=== PATIENT | female | born 1985 | race Caucasian/White ===

== ENCOUNTER 2024-07-27 17:14 | Emergency (ER) | payer SELFPAY ==
--- NOTE | 2024-07-27 17:51 | ED ---
Chest Pain HPI - General Chief Complaint: Chest Pain Stated Complaint: chest pain Time Seen by Provider: 07/27/24 17:15 Source: patient, EMS Mode of arrival: EMS Limitations: no limitations - History of Present Illness Initial Comments: Patient is a 39-year-old female no significant past medical history presenting today for left-sided chest pain. Patient states that she was sitting at home when she began experiencing left-sided chest pressure. She went to take a walk and the pain worsened intermittently rating down her back and left arm. She felt tingling in the corner of her mouth and left side of her face and tingling in her left upper extremity. Denies shortness of breath. EMS was called patient was provided with full dose aspirin and brought to emergency department. Patient states chest pain has resolved on arrival. She does state she has been under a significant amount of stress recently, as her son has Stage IV cancer and she was told 3 weeks ago that he has new tumors. Patient does not smoke cigarettes, no has has no history of hypertension, hyperlipidemia or diabetes. Patient's mother did have a heart attack at the age of 46. No history of blood clots. Is not on estrogen replacement therapy or control. No recent travel surgeries or hospitalizations, no hx PE/DVT, no cough or hemoptysis. No hx CA. Patient also notes 1 week LLQ abdominal pain. Vaginal spotting. No nausea, vomiting, diarrhea, hematochezia or melena. Does endorse urinary frequency stating she will urinate and feels like she does not "get it all out". Prior abdominal surgeries. - Related Data Home Medications Medication Instructions Recorded Confirmed Buprenorphine/Naloxone 8Mg/2Mg 0.5 film SL DAILY 07/27/24 07/27/24 [Suboxone 8-2Mg Film] Allergies Allergy/AdvReac Type Severity Reaction Status Date / Time No Known Allergies Allergy Verified 07/27/24 18:08 Review of Systems ROS Statement: Those systems with pertinent positive or pertinent negative responses have been documented in the HPI. ROS Other: All systems not noted in ROS Statement are negative. EKG Findings - EKG Comments: EKG Findings:: Sinus rhythm, rate 78 bpm, [place] interval 151 ms, QRS duration 93 ms, QT/QTc 346/range at 80 ms, normal axis, no ST elevations or depressions, no arrhythmia Past Medical History Past Medical History: No Reported History History of Any Multi-Drug Resistant Organisms: None Reported Past Surgical History: Section, Cholecystectomy Past Psychological History: Anxiety Smoking Status: Never smoker Past Alcohol Use History: None Reported Past Drug Use History: None Reported General Exam - General Exam Comments Initial Comments: PE: CONSTITUTIONAL: No apparent distress, well appearing, tearful SKIN: Warm, dry, no jaundice, hives or petechiae EYES: Pupils are equally round, extraocular movements intact without nystagmus, clear conjunctiva, non-icteric sclera HENT: Normocephalic, atraumatic, moist mucus membranes, oropharynx clear without exudates NECK: , Full range of motion, normal appearance PULMONARY: Clear to auscultation without wheezes, rhonchi, or rales, normal excursion, no accessory muscle use and no stridor CARDIOVASCULAR: Regular rate, rhythm, normal S1 and S2. No appreciated murmurs, rubs or gallops. Strong radial pulses with intact distal perfusion. 2+ pulses in the bilateral upper and bilateral lower extremities no lower extremity edema GASTROINTESTINAL: Soft, active bowel sounds throughout, tenderness to palpation of the left lower quadrant non-distended, no palpable masses, no rebound or guarding. No hepatosplenomegaly MUSCULOSKELETAL: Extremities have no gross deformity, no edema, redness, or swelling. No calf swelling NEUROLOGIC:_a/o x 3, GCS 15, normal mentation and speech. Moves all extremities x 4 without motor or sensory deficit PSYCHIATRIC: Tearful mood and affect, thought process is clear and linear Limitations: no limitations Course Vital Signs 07/27/24 07/27/24 17:16 18:02 Temperature 98.1 F Pulse Rate 92 98 Respiratory 20 18 Rate Blood Pressure 170/90 135/85 O2 Sat by Pulse 99 97 Oximetry Chest Pain MDM - MDM Was pt. sent in by a medical professional or institution (, PA, OSS ARCHITECT, urgent care, hospital, or longterm...) When possible be specific @ -No Did you speak to anyone other than the patient for history (EMS, parent, family, police, friend...)? What history was obtained from this source @ -No Did you review nursing and triage notes (agree or disagree)? Why? @ -I reviewed and agree with nursing and triage notes Were old charts reviewed (outside hosp., previous admission, EMS record, old EKG, old radiological studies, urgent care reports/EKG's, longterm records)? Report findings @No old charts available for review Differential Diagnosis (chest pain, altered mental status, abdominal pain women, abdominal pain men, vaginal bleeding, weakness, fever, dyspnea, syncope, headache, dizziness, GI bleed, back pain, seizure, CVA, palpatations, mental health, musculoskeletal)? @ -Differential Chest Pain: ACS, pericarditis, pleurisy, chostochondirits, Pneumothorax, Musculoskeletal, PE, esophageal Spasm GERD, anxiety this is not meant to be an all-inclusive list. In addition to differential listed above, in regards left lower quadrant pain has been ongoing for a week with no associated GI symptoms, differential diagnosis remains broad over top considerations include ureterolithiasis, diverticulitis, diverticulosis, colitis, ovarian cyst, ovarian torsion, ectopic is an all-inclusive list EKG interpreted by me (3pts min.). @ -As above X-rays interpreted by me (1pt min.). @ -Normal cardiac silhouette, no cardiomegaly, no pleural effusions CT interpreted by me (1pt min.). @ -None done U/S interpreted by me (1pt. min.). @ -None done What testing was considered but not performed or refused? (CT, X-rays, U/S, labs)? Why? @ -Considered CT abdomen pelvis however labs reassuring, no elevated lactate, no leukocytosis would expect these to be elevated with pain going on for a week if acute intra-abdominal process occurring, vital signs stable no additional GI symptoms What meds were considered but not given or refused? Why? @ -None Did you discuss the management of the patient with other professionals (professionals i.e. , PA, OSS ARCHITECT, lab, RT, psych nurse, professor of social work, coverstitch machine operator, teacher, senior grants officer, disease case manager rn)? Give summary @ -No Was smoking cessation discussed for >3mins.? @ -No Was critical care preformed (if so, how long)? @ -No Were there social determinants of health that impacted care today? How? (Homelessness, low income, unemployed, alcoholism, drug addiction, transportation, low edu. Level, literacy, decrease access to med. care, halfway, rehab)? @ -No Was there de-escalation of care discussed even if they declined (Discuss DNR or withdrawal of care, Hospice)? @ -No What co-morbidities impacted this encounter? (DM, HTN, Smoking, COPD, CAD, Cancer, CVA, ARF, Chemo, Hep., AIDS, mental health diagnosis, sleep apnea, morbid obesity)? @ -None Was patient admitted / discharged? Hospital course, mention meds given and route, prescriptions, significant lab abnormalities, going to OR and other pertinent info. @ -Hospital course Patient seen and evaluated on arrival. She is a previously well 31-year-old female presenting for left-sided chest pain that radiated down her arm with exertion. Positive family history. On my assessment patient states pain had resolved. Discussed plan for cardiac workup, D-dimer, valium as patient is very tearful and feels very stressed with patient's son's new health diagnosis. Labs and imaging reviewed. Grossly within normal limits. Abnormal values not concerning for acute pathology related to presenting complaint. Will obtain repeat troponin. Given patient's low heart score anticipate discharge. Patient is agreeable and comfortable this plan. We did discuss her left lower quadrant pain and will obtain an ultrasound of left lower quadrant to rule out ovarian torsion. Patient is agreeable with this. Repeat troponin less than 0.012. Transabdominal ultrasound performed as patient refused pelvic. Ultrasound pelvis transabdominal notes that the uterus appeared slightly bulky in appearance was difficult to evaluate without transvaginal and imaging, ovaries obscured by overlying bowel gas. I did update patient to these findings and did discuss with her that if her pain was secondary to ovarian torsion or pathology we would not be able to see with transvaginal ultrasound. She was comfortable with discharge home without further imaging and will follow- up with her court recorder in her primary care provider soon as possible. HEART [id number] suspicious history normal EKG, age less than 45, 1-2 risk factors, troponin liwithin normal limits In my medical judgment there is currently no evidence of an immediate life- threatening or surgical condition. Discharge is therefore indicated at this time. Discharge treatment instructions, follow up instructions, and appropriate emergency department return precautions were discussed with the patient and/or medical decision maker. Patient and/or medical decision maker expressed understanding of and agreed with the treatment plan, follow up instructions, and emergency department return precaution. All patient's and/or medical decision maker's questions were answered. The patient was advised that a small risk still exists that a serious condition could develop and was therefore instructed to return to the ED for any changes in symptoms, persistent symptoms, inability to obtain proper follow-up or for any further concerns. Patient received verbal and written instructions for this condition. Undiagnosed new problem with uncertain prognosis? @ -No Drug Therapy requiring intensive monitoring for toxicity (Heparin, Nitro, Insulin, Cardizem)? @ -No Were any procedures done? @ -No Diagnosis/symptom? @ -Chest pain, left lower quadrant pain Acute, or Chronic, or Acute on Chronic? @ -Acute Uncomplicated (without systemic symptoms) or Complicated (systemic symptoms)? @ -Complicated Side effects of treatment? @ -No Exacerbation, Progression, or Severe Exacerbation? @ -No Poses a threat to life or bodily function? How? (Chest pain, [place], [place], pneumonia, PE, COPD, DKA, ARF, appy, cholecystitis, CVA, Diverticulitis, Homicidal, Suicidal, threat to staff... and all critical care pts) @ -No - Wells Criteria Clinical Symptoms of DVT: (0) No No Alternative Diagnosis: (3.0) Yes Immobilization of Surgery in Previous 4 Weeks: (0) No Previous DVT/PE: (0) No Hemoptysis: (0) No Malignancy: (0) No - PERC Rule Heart Rate < 100: (0) No g: (0) No No Prior History pf DVT/PE: (1) Yes No Recent Trauma or Surgery: (1) Yes Hemoptysis: (0) No No Exogenous Estrogen: (0) No No Clinical Signs Suggesting DVT: (0) No Disposition Clinical Impression: Chest pain, Left lower quadrant abdominal pain Disposition: HOME SELF-CARE Condition: Good Instructions (If sedation given, give patient instructions): Chest Pain (ED), Abdominal Pain (ED) Additional Instructions: Every disease is a spectrum and a small chance still exists that a serious condition could develop, for this reason, please monitor yourself closely for new, changing or worsening symptoms, symptoms that do not improve in 48 hours, worsening or uncontrolled pain, shortness of breath, coughing up blood, difficulty in breathing, swelling in 1 leg greater than the other, blood in your stool, pain that you cannot control at home, fever, inability to tolerate/keep down fluids or your medications, inability to follow up with outpatient providers as instructed and should you experience these symptoms or should you have any further concerns for your wellbeing please return to the ED or call 911 immediately. PLEASE call your primary care physician as soon as possible to arrange / discuss plan for followup appointment. Appointment in the next 1-3 days is strongly encouraged if possible. PLEASE let us know here before you leave if there is anything further we can do to be of any assistance. Take care and feel Better! Is patient prescribed a controlled substance at d/c from ED?: No Referrals: None,Stated [Primary Care Provider] - 1-2 days
[2024-07-27] MEDS: SODIUM CHLORIDE 0.9% 1,000 ML IV STA (17:53)
[2024-07-27] MEDS: ACETAMINOPHEN TAB 500 MG TAB PO STA (17:54)
[2024-07-27 18:09] LABS: Basophils % (A) 0 %; Eosinophils # (A) 0.4 k/uL (0-0.7); Eosinophils % (A) 5 %; HGB 13.8 gm/dL (11.4-16.0); Lymphocytes # (A) 1.9 k/uL (1.0-4.8); Lymphocytes % (A) 24 %; MCH 30.1 pg (25.0-35.0); MCHC 32.9 g/dL (31.0-37.0); MCV 91.5 fL (80.0-100.0); Mean Platelet Volume 7.3; Monocytes # (A) 0.3 k/uL (0-1.0); Monocytes % (A) 4 %; Neutrophils # (A) 5.1 k/uL (1.3-7.7); Neutrophils % (A) 65 %; Platelet Count 349 k/uL (150-450); RBC 4.59 m/uL (3.80-5.40); RDW 12.8 % (11.5-15.5); WBC 7.8 k/uL (3.8-10.6)
[2024-07-27 18:18] LABS: Appearance,Urine Clear (Clear); Bilirubin,Urine Negative (Negative); Blood,Urine Moderate (Negative); Color,Urine Light Yellow; Glucose,Urine (UA) Negative (Negative); Ketones,Urine Negative (Negative); Leukocyte Esterase,Urine Negative (Negative); Mucus,Urine Rare /hpf; Nitrite,Urine Negative (Negative); PH, Urine 6.5 (5.0-8.0); Protein,Urine Negative (Negative); RBC,Urine <1 /hpf (0-5); Specific Gravity,Urine 1.012 (1.001-1.035); Squamous Epithelial Cell,Urine 2 /hpf (0-4); Urobilinogen,Urine <2.0 mg/dL (<2.0); WBC,Urine 1 /hpf (0-5)
[2024-07-27 18:21] LABS: ALT 18 U/L (4-34); AST 28 U/L (14-36); African American GFR (CKD) >90 (>60 ml/min/1.73 sqM); Albumin 4.4 g/dL (3.5-5.0); Alkaline Phosphatase 68 U/L (38-126); Anion Gap 7 mmol/L; Blood Urea Nitrogen 8 mg/dL (7-17); Calcium 9.8 mg/dL (8.4-10.2); Carbon Dioxide 23 mmol/L (22-30); Chloride 108 mmol/L (98-107); Glucose 101 mg/dL (74-99); Lipase 52 U/L (23-300); Magnesium 1.9 mg/dL (1.6-2.3); Non-African American GFR(CKD) >90 (>60 ml/min/1.73 sqM); Sodium 138 mmol/L (137-145); Total Bilirubin 0.8 mg/dL (0.2-1.3); Total Protein 7.2 g/dL (6.3-8.2)
[2024-07-27 18:24] LABS: Prothrombin Time 10.6 sec (10.0-12.5)
[2024-07-27 18:25] LABS: Partial Thromboplastin Time 27.3 sec (22.0-30.0)
[2024-07-27 18:26] LABS: Amylase <30 U/L (30-110)
[2024-07-27 18:30] LABS: NT-Pro-B-Type Natriuretic Pept <20 pg/mL
--- NOTE | 2024-07-27 19:59 | XR ---
EXAMINATION TYPE: XR chest 2V DATE OF EXAM: 07/27/2024 7:42 PM CLINICAL INDICATION:Female, 39 years old with history of Difficulty breathing ; [facility] COMPARISON: 12/20/2012 TECHNIQUE: XR chest 2V. Frontal and lateral views of the chest.. FINDINGS: Lines/Tubes/Devices: EKG leads overlie the chest. No indwelling lines are seen. Heart/mediastinum: Heart size is normal. Mediastinum appears normal. Pulmonary vascularity: Not increased, Lungs/Pleura: There is no evidence of pleural effusion, focal consolidation, or pneumothorax. Musculoskeletal: No acute osseous abnormality demonstrated in the limits of the exam. Other findings: None. IMPRESSION: No acute cardiopulmonary abnormality. [facility], , 07/27/2024 7:57 PM
--- NOTE | 2024-07-27 23:03 | US ---
EXAMINATION TYPE: US pelvic complete DATE OF EXAM: 07/27/2024 COMPARISON: NONE CLINICAL INDICATION: Female, 39 years old with history of LLQ pain; Patient states LLQ pain for 1 wee k. PT refused TV ultrasound TECHNIQUE: Transabdominal (TA). Transabdominal grayscale, color Doppler and spectral Doppler sonogr aphic images of the pelvis were acquired. Lack of transvaginal imaging limits exam sensitivity. Patient refused TV ultrasound FINDINGS: Date of LMP: 07/19/2024 EXAM MEASUREMENTS: Uterus: 7.5 x 5.6 x 4.7cm Endometrial Stripe: 0.5 cm Right Ovary: Unable to visualize due to overlying bowel gas Left Ovary: Unable to visualize due to overlying bowel gas 1. Uterus: Anteverted Appears slightly bulky in appearance, difficult to fully evaluate without TV imaging 2. Endometrium: wnl 3. Right Ovary: Obscured by overlying bowel gas 4. Left Ovary: Obscured by overlying bowel gas 5. Bilateral Adnexa: Obscured by overlying bowel gas 6. Posterior cul-de-sac: no free fluid IMPRESSION: 1. Limited study with nonvisualization of the bilateral ovaries/adnexa. 2. Nonspecific slightly bulky appearance to the uterus, could be related to underlying fibroid disea se. [facility], , 07/27/2024 11:01 PM
[2024-07-27 23:15] VITALS: BP 114/72; PULSE 71; RESP 17; TEMP 98.3
== END 2024-07-27 23:17 | disposition home or self-care (01) ==
LOC: EC 17:14
CPT/HCPCS: 36415; 71046; 76856; 80053; 81001; 82150; 83605; 83690; 83735; 83880; 84484; 84702; 85025; 85379; 85610; 85730; 93005; 96361; 99282; 99285